=== PATIENT | female | born 2000 | race Caucasian/White ===

== ENCOUNTER 2024-08-11 16:13 | Emergency (ER) | payer OTHER, SELFPAY ==
[2024-08-11 16:15] VITALS: BP 119/77; PULSE 72; TEMP 37.2; O2SAT 98; BMI 30.5
--- NOTE | 2024-08-11 16:33 | ECG_ITS ---
[facility] Test Date: 2024-08-11 Pat Name: CYN MEAD Department: Room: - Gender: Female [employer]: : 2000 Requested By: Order Number: [id number] Reading MD: LINDSEY JONES Measurements Intervals [place] Rate: 82 P: 41 PA: 134 QRS: 62 QRSD: 68 T: 0 QT: 342 QTc: 381 Interpretive Statements 1100 Sinus rhythm 4068 Nonspecific [place] abnormality 9130 borderline ECG No previous ECG available for comparison Electronically Signed On 08-12-2024 12:01:05 EDT by LINDSEY JONES
[2024-08-11] MEDS: FAMOTIDINE/PF 20 MG/2 ML VIAL IV (16:42)
[2024-08-11 16:47] LABS: Basophils Absolute Auto 0.1 10^3/uL (0.0-0.1); Basophils Percent Auto 0.7 % (0.2-2.0); Eosinophils Absolute Auto 0.1 10^3/uL (0.0-0.7); Eosinophils Percent Auto 1.5 % (0.9-7.0); Hematocrit 38.3 % (36.0-48.0); Hemoglobin 12.6 g/dL (12.0-16.0); Immature Granulocytes Abs Auto 0.02 10^3/uL (0.00-0.03); Immature Granulocytes Pct Auto 0.3 % (0.0-0.5); Lymphocytes Absolute Auto 1.7 10^3/uL (1.2-3.8); Lymphocytes Percent Auto 22.8 % (20.5-60.0); Mean Corpuscular HGB Conc 32.9 g/dL (29.9-35.2); Mean Corpuscular Hemoglobin 31.1 pg (26.7-34.0); Mean Corpuscular Volume 94.6 fL (81.0-99.0); Mean Platelet Volume 10.7 fL (9.5-13.5); Monocytes Absolute Auto 0.6 10^3/uL (0.3-0.8); Monocytes Percent Auto 7.3 % (1.7-12.0); Neutrophils Absolute Auto 5.1 10^3/uL (1.4-6.5); Neutrophils Percent Auto 67.4 % (43.0-75.0); Platelet Count 250 10^3/uL (150-450); Red Blood Count 4.05 10^6/uL (4.20-5.40); Red Cell Distribution Width 11.9 % (11.0-15.0); White Blood Count 7.5 10^3/uL (4.0-11.0)
[2024-08-11 17:37] LABS: Alanine Aminotransferase 18 U/L (14-59); Albumin Globulin Ratio 1.2; Albumin Level 3.5 g/dL (3.4-5.0); Alkaline Phosphatase 50 U/L (46-116); Anion Gap 12.6; Aspartate Amino Transferase 19 U/L (15-37); BUN Creatinine Ratio 22.1; Bilirubin Total 0.2 mg/dL (0.2-1.0); Carbon Dioxide 26.4 mmol/L (21.0-32.0); Chloride 106 mmol/L (98-107); Estimated GFR (African America >60 (>=60 mL/min/1.73m^2); Estimated GFR (Non-African Ame >60 (>=60 mL/min/1.73m^2); Globulin 2.9 g/dL; Glucose 93 mg/dL (74-106); Sodium 141 mmol/L (136-145); Total Protein 6.4 g/dL (6.4-8.2); Troponin I High Sensitivity <4.0 pg/mL (4.0-51.3)
--- NOTE | 2024-08-11 17:42 | ED_ITS ---
HPI - Chest Pain General Chief Complaint: Chest Pain Stated Complaint: CHEST PAIN Time Seen by Provider: 08/11/24 16:22 Source: patient Mode of arrival: walk-in Limitations: no limitations History of Present Illness HPI narrative: The patient presenting to us with retrosternal chest pressure and tightness that she been noting for the last 24 hours, she mentioned that she always notes that after eating she had a history of having PVCs in the past but not for right now She also mentioned that she quit drinking alcohol almost few weeks ago and also vaping The patient denies any shortness of breath fever chills or any other complaints Mentioned that this is a retrosternal pressure and tightness she feels that more after eating and she also mentioned that she does have the habit of eating late at night Related Data Previous Rx's ?Medication ?Instructions ?Recorded famotidine 20 mg tablet (Pepcid) 20 mg PO BID #20 tabs 08/11/24 Allergies Allergy/AdvReac Type Severity Reaction Status Date / Time No Known Drug Allergies Allergy Verified 08/11/24 16:19 Review of Systems ROS Status of ROS 10 or more systems reviewed and unremark able except as noted in history and below PFSH PFSH Social History Little interest or pleasure in doing things: not at all Feeling down, depressed, or hopeless: not at all Exam Narrative Exam Narrative: Nurses notes and vital signs reviewed and patient is not hypoxic. General: Well-appearing and in no apparent distress. Skin: Warm, dry, no pallor noted. No rash. Head: Normocephalic, atraumatic. Neck: Supple, non-tender. Eye: Pupils are equal, round and EOMI. No scleral icterus. Ears, Nose, Mouth, and Throat: TM are clear, no nasal mucosal hypertrophy. Oral mucosa is moist, no posterior oropharynx erythema, uvula is mid-line Cardiovascular: Regular Rate and Rhythm without murmur, gallop or rub. Respiratory: No accessory muscle use or respiratory distress. Lungs are clear to auscultation, no wheezing, rales or rhonchi Chest Wall: no tenderness Back: No midline thoracic or lumbar vertebral tenderness. No CVA tenderness Musculoskeletal: normal ROM, no calf or popliteal tenderness, no lower extremity edema/swelling GI: Abdomen is soft, non-distended. Normal bowel sounds. No masses appreciated. No tenderness to palpation. No rebound, guarding, or rigidity noted. Neurological: A&O x4. No cranial nerve dysfunction observed. No truncal ataxia. Moves all extremities. Sensation intact. Psychiatric: Cooperative and interactive. Normal mood and affect. Constitutional Vital Signs, click to edit/add: Last Vital Signs Temp 98.9 F 08/11/24 16:15 Pulse 72 08/11/24 16:15 Resp 18 08/11/24 16:15 BP 119/77 08/11/24 16:15 Pulse Ox 98 08/11/24 16:15 O2 Del Method Room Air 08/11/24 16:15 Course Vital Signs Vital signs: Vital Signs Temperature 98.9 F 08/11/24 16:15 Pulse Rate 72 08/11/24 16:15 Respiratory Rate 18 08/11/24 16:15 Blood Pressure 119/77 08/11/24 16:15 Pulse Oximetry 98 08/11/24 16:15 Oxygen Delivery Method Room Air 08/11/24 16:15 Temperature 98.9 F 08/11/24 16:15 Pulse Rate 72 08/11/24 16:15 Respiratory Rate 18 08/11/24 16:15 Blood Pressure 119/77 08/11/24 16:15 Pulse Oximetry 98 08/11/24 16:15 Oxygen Delivery Method Room Air 08/11/24 16:15 MDM - Chest Pain MDM Narrative Medical decision making narrative: The patient EKG showing sinus rhythm with a heart rate of [address] elevation or depression CBC chemistry and troponin showed no acute pathology and the patient presenting with retrosternal chest tightness that mostly secondary to GERD Patient provided with acid reflux medication in the ER and discharged home with Pepcid with instruction to lifestyle modification The patient is to follow up with primary care physician in next 2-3 days or to return to the emergency department should any of the signs or symptoms worsen or new symptoms develop. The patient agrees with the following Diagnosis and Treatment plan and the patient will be discharged home. Lab Data Labs: Lab Results 08/11/24 08/11/24 Range/Units 16:26 17:14 WBC 7.5 (4.0-11.0) 10^3/uL RBC 4.05 L (4.20-5.40) 10^6/uL Hgb 12.6 (12.0-16.0) g/dL Hct 38.3 (36.0-48.0) % MCV 94.6 (81.0-99.0) fL MCH 31.1 (26.7-34.0) pg MCHC 32.9 (29.9-35.2) g/dL RDW 11.9 (11.0-15.0) % Plt Count 250 (150-450) 10^3/uL MPV 10.7 (9.5-13.5) fL Neut % (Auto) 67.4 (43.0-75.0) % Lymph % (Auto) 22.8 (20.5-60.0) % [place] % (Auto) 7.3 (1.7-12.0) % Eos % (Auto) 1.5 (0.9-7.0) % Baso % (Auto) 0.7 (0.2-2.0) % Neut # (Auto) 5.1 (1.4-6.5) 10^3/uL Lymph # (Auto) 1.7 (1.2-3.8) 10^3/uL [place] # (Auto) 0.6 (0.3-0.8) 10^3/uL Eos # (Auto) 0.1 (0.0-0.7) 10^3/uL Baso # (Auto) 0.1 (0.0-0.1) 10^3/uL Abs Immat Gran (auto) 0.02 (0.00-0.03) 10^3/uL Imm/Tot Granulo (auto) 0.3 (0.0-0.5) % Sodium 141 (136-145) mmol/L Potassium 4.0 (3.5-5.1) mmol/L Chloride 106 (98-107) mmol/L Carbon Dioxide 26.4 (21.0-32.0) mmol/L Anion Gap 12.6 BUN 19.0 H (7.0-18.0) mg/dL Creatinine 0.86 (0.55-1.02) mg/dL Est GFR ( Amer) >60 (>=60 mL/min/1.73m^2) Est GFR (Non-Af Amer) >60 (>=60 mL/min/1.73m^2) BUN/Creatinine Ratio 22.1 Glucose 93 (74-106) mg/dL Calcium 9.0 (8.5-10.1) mg/dL Total Bilirubin 0.2 (0.2-1.0) mg/dL AST 19 (15-37) U/L ALT 18 (14-59) U/L Alkaline Phosphatase 50 (46-116) U/L Troponin I High Sens <4.0 L (4.0-51.3) pg/mL Total Protein 6.4 (6.4-8.2) g/dL Albumin 3.5 (3.4-5.0) g/dL Globulin 2.9 g/dL Albumin/Globulin Ratio 1.2 Discharge Plan Discharge Chief Complaint: Chest Pain Clinical Impression: Atypical chest pain, GERD (gastroesophageal reflux disease) Patient Disposition: Home, Self-Care Time of Disposition Decision: 17:01 Condition: Good Prescriptions / Home Meds: New famotidine [Pepcid] 20 mg tablet 20 mg PO BID Qty: 20 0RF Print Language: Bengali Instructions: Chest Pain (DC), GERD (Gastroesophageal Reflux Disease) (DC) Referrals: Physician,Non-Staff, MD [Primary Care Provider] - 1 week
[2024-08-11 18:04] VITALS: BP 111/63; PULSE 66; O2SAT 99
== END 2024-08-11 18:06 | disposition home or self-care (01) ==
PROVIDERS: Emergency Provider Emergency Medicine
DX: R07.89 Other chest pain (principal); K21.9 Gastro-esophageal reflux disease without esophagitis
CPT/HCPCS: 36415; 80053; 84484; 85025; 93005; 96374; 99284; 99285; J3490